=== PATIENT | male | born 1970 | race Caucasian/White ===

== ENCOUNTER 2021-09-19 15:42 | Emergency (ER) | payer OTHER ==
[~2021-09-19] VITALS: Ht 167.6 cm; Wt 79.5 kg
[2021-09-19] MEDS ORDERED: htn med PO (15:52)
[2021-09-19] MEDS ORDERED: SODIUM CHLORIDE 0.9% 1,000 ML IV ONE (16:30)
[2021-09-19 16:44] LABS: HEMATOCRIT 48.2 % (41-53); HEMOGLOBIN 16.8 g/dL (13.5-17.5); MEAN CORPUSCULAR HEMOGLOBIN 28.7 pg (26.0-34.0); MEAN CORPUSCULAR HGB CONC 34.8 G/dL (31.0-37.0); MEAN CORPUSCULAR VOLUME 83 fL (80-100); PLATELET COUNT (AUTO) 187 K/uL (150-450); RED BLOOD CELL COUNT(AUTO) 5.84 MIL/uL (4.50-5.90)
[2021-09-19 16:53] LABS: CALCIUM, TOTAL 8.9 mg/dL (8.8-10.5); CREATININE 1.73 mg/dL (0.60-1.30)
[2021-09-19 16:59] LABS: ALBUMIN 2.8 g/dL (3.4-5.0); BILIRUBIN,TOTAL 1.2 mg/dL (0.1-1.0); TOTAL PROTEIN, SERUM 7.1 g/dL (6.4-8.2)
[2021-09-19 17:09] LABS: BAND NEUTROPHILS % (MANUAL) 24 % (0-5); LYMPHOCYTES % (MANUAL) 26 % (22-44); MONOCYTES % (MANUAL) 5 % (2-9); SEGMENTED NEUTROPHILS % 45 % (40-70)
[2021-09-19] MEDS ORDERED: CIPR500T10 PO (20:04)
[2021-09-19] MEDS ORDERED: METR-172 PO (20:06)
[2021-09-19 20:47] VITALS: BP 129/74
== END 2021-09-19 20:55 | disposition home or self-care (01) ==
LOC: EMS 15:45
DX: R19.7 Diarrhea, unspecified (principal); K57.92 Diverticulitis of intestine, part unspecified, without perforation or abscess without bleeding; F10.20 Alcohol dependence, uncomplicated; I10 Essential (primary) hypertension; F17.210 Nicotine dependence, cigarettes, uncomplicated; F15.90 Other stimulant use, unspecified, uncomplicated
CPT/HCPCS: 74176; 80053; 83690; 85025; 93005; 96360; 99285; J7030; 36415-L1; 36415-TC

== ENCOUNTER 2021-09-21 10:02 | Emergency (ER) | payer OTHER ==
[~2021-09-21] VITALS: Ht 165.1 cm; Wt 79.5 kg
[~2021-09-21 10:02] MED LIST: CIPR500T10 PO; METR-172 PO; htn med PO
[2021-09-21 10:05] VITALS: BP 135/75
== END 2021-09-21 10:53 | disposition left against medical advice (07) ==
LOC: EMS 10:04
DX: Z53.21 Procedure and treatment not carried out due to patient leaving prior to being seen by health care provider (principal)

== ENCOUNTER 2021-12-02 16:03 | Emergency (ER) | payer OTHER ==
[~2021-12-02] VITALS: Ht 167.6 cm; Wt 81.8 kg
[2021-12-02] MEDS ORDERED: LISI2.5T91 PO (16:24)
[2021-12-02] MEDS ORDERED: ACETAMINOPHEN 500 MG TABLET PO ONE (16:45)
[2021-12-02] MEDS ORDERED: KETOROLAC TROMETHAMINE 30 MG/ML VIAL IVP ONE (16:45)
[2021-12-02] MEDS ORDERED: SODIUM CHLORIDE 0.9% 1,000 ML IV ONE (16:45)
[2021-12-02 17:07] LABS: HEMOGLOBIN 14.4 g/dL (13.5-17.5); MEAN CORPUSCULAR HEMOGLOBIN 27.7 pg (26.0-34.0); MEAN CORPUSCULAR HGB CONC 34.2 G/dL (31.0-37.0); MEAN CORPUSCULAR VOLUME 81 fL (80-100); PLATELET COUNT (AUTO) 177 K/uL (150-450); RED CELL DISTRIBUTION WIDTH 13.8 % (11.5-14.5)
[2021-12-02] MEDS ORDERED: LISI20TA24 PO (17:16)
[2021-12-02 17:18] LABS: ANION GAP 7 mmol/L (8-16); CALCIUM, TOTAL 8.2 mg/dL (8.8-10.5); CARBON DIOXIDE 23 mmol/L (22-29); CHLORIDE 101 mmol/L (98-107); CREATININE 0.99 mg/dL (0.60-1.30); GLUCOSE,RANDOM 113 mg/dL (70-110); POTASSIUM 3.3 mmol/L (3.5-5.1); SODIUM SERUM 131 mmol/L (136-145); UREA NITROGEN, BLOOD 14 mg/dL (7-18)
[2021-12-02 17:37] LABS: GLOMERULAR FILTR. RATE CALC > 60 mL/min (>60)
[2021-12-02 17:39] LABS: B-TYPE NATRIURETIC PEPTIDE 37 pg/mL (0-100)
[2021-12-02 17:43] LABS: ALANINE AMINOTRANSFERASE 23 U/L (12-78); ALBUMIN 3.7 g/dL (3.4-5.0); ALKALINE PHOSPHATASE 63 U/L (46-116); ASPARTATE AMINOTRANSFERASE 18 U/L (15-37); BILIRUBIN,TOTAL 0.5 mg/dL (0.1-1.0); CREATINE KINASE, TOTAL ONLY 96 U/L (39-308)
[2021-12-02] MEDS ORDERED: AZITHROMYCIN 500 MG TABLET PO ONE (17:45)
[2021-12-02] MEDS ORDERED: ACET-3385 PO ×2 (18:12→19:25)
[2021-12-02] MEDS ORDERED: AZIT-84 PO ×2 (18:12→19:25)
[2021-12-02 19:23] LABS: BAND NEUTROPHILS % (MANUAL) 0 % (0-5); LYMPHOCYTES % (MANUAL) 10 % (22-44); MONOCYTES % (MANUAL) 11 % (2-9); SEGMENTED NEUTROPHILS % 79 % (40-70)
[2021-12-02 19:28] VITALS: BP 131/68
== END 2021-12-02 19:30 | disposition home or self-care (01) ==
LOC: EMS 16:03
DX: U07.1 COVID-19 (principal); I10 Essential (primary) hypertension; F10.20 Alcohol dependence, uncomplicated; F17.210 Nicotine dependence, cigarettes, uncomplicated; J18.9 Pneumonia, unspecified organism; R53.1 Weakness
CPT/HCPCS: 99285; 96374; 71045; 96361; 80053; 82550; 83880; 84484; 85025; 36415; 93005; J1885; Q9967; J7030

== ENCOUNTER 2021-12-05 14:36 | Emergency (ER) | payer OTHER ==
[~2021-12-05] VITALS: Ht 167.6 cm; Wt 81.8 kg
[~2021-12-05 14:36] MED LIST changes: +ACET-3385 PO; +AZIT-84 PO; -CIPR500T10 PO; +LISI20TA24 PO; -METR-172 PO; -htn med PO
[2021-12-05 14:54] VITALS: BP 122/71
[2021-12-05 15:28] LABS: COVID AG,FIA SOURCE NASAL SWAB
== END 2021-12-05 16:34 | disposition home or self-care (01) ==
LOC: EMS 14:39
DX: U07.1 COVID-19 (principal); F10.20 Alcohol dependence, uncomplicated; I10 Essential (primary) hypertension; F17.210 Nicotine dependence, cigarettes, uncomplicated; F15.90 Other stimulant use, unspecified, uncomplicated
CPT/HCPCS: 99283

== ENCOUNTER 2021-12-09 08:23 | Emergency (ER) | payer OTHER ==
[~2021-12-09] VITALS: Ht 167.6 cm; Wt 81.8 kg
[2021-12-09 08:23] VITALS: BP 162/95
[2021-12-09 09:50] LABS: COVID AG,FIA SOURCE NASOPHARYNGEAL
== END 2021-12-09 10:55 | disposition home or self-care (01) ==
LOC: EMS 08:25
DX: U07.1 COVID-19 (principal); F17.210 Nicotine dependence, cigarettes, uncomplicated; F10.20 Alcohol dependence, uncomplicated; I10 Essential (primary) hypertension
CPT/HCPCS: 99283